=== PATIENT | male | born 1995 ===

== ENCOUNTER 2016-07-30 13:52 | Emergency (ER) | payer OTHER ==
--- NOTE | 2016-08-13 22:29 | UC ---
Tucker Rogers Anna, scribed for Minna Shaffer MD on 07/30/16 at 1626 . Skin Complaint HPI - HPI Summary HPI Summary: Patient is a 20 y/o male coming to [facility] presenting with gradual onset of a constant rash on his left hand that began a month ago. He was using Lotrisone and a combination for three weeks but stopped four days ago. It helped initially but did not completely resolve the issue. He also tried treating the rash with bleach. He also reports he has a spot on his leg that has largely resolved. He suspects this began when he went to the gym. 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 - History of Current Complaint Chief Complaint: UCRas Time Seen by Provider: 07/30/16 16:14 Stated Complaint: RASH COMPLAINT Hx Obtained From: Patient Onset/Duration: Lasting Weeks Timing: Constant - Allergy/Home Medications Allergies/Adverse Reactions: Allergies Allergy/AdvReac Type Severity Reaction Status Date / Time No Known Allergies Allergy Verified 07/30/16 15:52 Review of Systems Constitutional: Negative Skin: Rash - See HPI Eyes: Negative ENT: Negative Respiratory: Negative Cardiovascular: Negative Gastrointestinal: Negative Genitourinary: Negative Motor: Negative Neurovascular: Negative Musculoskeletal: Negative Neurological: Negative Psychological: Negative All Other Systems Reviewed And Are Negative: Yes PMH/Surg Hx/FS Hx/Imm Hx Previously Healthy: Yes Endocrine History Of: Denies: Diabetes, Thyroid Disease Cardiovascular History Of: Denies: Cardiac Disorders, Hypertension Respiratory History Of: Denies: COPD, Asthma GI/ History Of: Denies: Ulcer - Surgical History Surgical History: None - Family History Known Family History: Negative: Cardiac Disease, Diabetes - Social History Alcohol Use: Weekly Substance Use Type: Marijuana Smoking Status (MU): Smoker, Current Status Unknown Physical Exam Triage Information Reviewed: Yes Appearance: Well-Nourished Vital Signs: Initial Vital Signs Temp 98.6 F 07/30/16 15:48 Pulse 80 07/30/16 15:48 Resp 18 07/30/16 15:48 BP 121/62 07/30/16 15:48 Pulse Ox 98 07/30/16 15:48 Vital Signs Reviewed: Yes Eye Exam: Normal ENT Exam: Normal Neck exam: Normal - No adenopathy appreciated Respiratory Exam: Normal - No dyspnea, no tachypnea Cardiovascular Exam: Normal - Good general skin color, good capillary refill. Musculoskeletal Exam: Normal Musculoskeletal: Positive: Strength Intact Neurological Exam: Normal - Nonfocal, grossly intact Psychological Exam: Normal - Conversing easily and appropriately Skin: Positive: rashes - UV positive c/w fungal dermatitis Course/Dx - Course Course Of Treatment: No new problems in CCC. Considered below differential diagnoses: Sx/x c/w fungal dermatitis. See avs instructions - Diagnoses Provider Diagnoses: dermatitis Discharge - Discharge Plan Condition: Stable Disposition: HOME Prescriptions: Clotrimazole/Betamethasone* [Lotrisone Cream*] 1 applic TOPICAL BID #1 tube Econazole 1% CREAM (NF) [Econazole 1 % CREAM (NF)] 1 applic TOPICAL BID #1 tube Patient Education Materials: Antifungals (On the skin), Skin Yeast Infection ( ED) Referrals: Kathy CASTILLO,[facility] [Primary Care Provider] - Amrita Bueno MD [Medical Doctor] - Additional Instructions: Please follow up with your primary care provider. Seek medical attention for worsening problems in the meantime. Follow up with Dr. Bueno - next available. Follow up with your primary care physician, routine. Avoid astringents / soaking to skin. Shower ok, pat dry. The documentation as recorded by the Tucker angel Anna accurately reflects the service I personally performed and the decisions made by me, Minna Shaffer MD.
== END 2016-07-30 16:42 | disposition home or self-care (01) ==
LOC: UCEAST 13:52
DX: L30.9 Dermatitis, unspecified (principal); F12.90 Cannabis use, unspecified, uncomplicated; F17.210 Nicotine dependence, cigarettes, uncomplicated
CPT/HCPCS: 99202; G0463